=== PATIENT | female | born 1970 | race American Indian/Alaskan Native ===

== ENCOUNTER 2020-03-23 12:33 | Outpatient (CLI) | payer MEDICAID ==
--- NOTE | 2020-03-23 13:31 | XRay Report ---
CERVICAL SPINE 5 VIEWS INDICATION: RIGHT SHOULDER PAIN. COMPARISON: None. IMPRESSION: There is straightening of the normal lordosis. No subluxation. Mild to moderate degener ative disc disease is identified at C4-5, C5-6 and C6-7. The posterior elements are unremarkable. The oblique images demonstrate mild neural foraminal narrowing at C5-6 on the right side. The remaining levels are unremarkable. No acute osseous or soft tissue abnormality. RIGHT SHOULDER 3 VIEWS INDICATION: RIGHT SHOULDER PAIN. COMPARISON: None. IMPRESSION: No acute osseous or soft tissue abnormality. No significant DJD. Signer Name: Mk Tuttle Jr, MD Signed: 03/23/2020 1:26 PM Workstation Name: [id number]
== END 2020-03-23 12:34 | disposition home or self-care (01) ==
LOC: XRAY 12:33
PROVIDERS: ATTEND Orthopaedic Surgery
DX: M50.323 Other cervical disc degeneration at C6-C7 level (principal); M50.322 Other cervical disc degeneration at C5-C6 level; M50.321 Other cervical disc degeneration at C4-C5 level; M48.02 Spinal stenosis, cervical region; M25.511 Pain in right shoulder
CPT/HCPCS: 72050